=== PATIENT | male | born 1980 | race Caucasian/White ===

== ENCOUNTER 2016-11-11 06:55 | Emergency (ER) | payer OTHER ==
--- NOTE | ~2016-11-11 | CR78 ---
[facility] A Service of [facility] & [facility] RADIOLOGY TEXT RESULTS PATIENT: MAURICIO CHE LOCATION: [facility] : 78 UNIT #: [id number] AGE: [address]: Kellee Palomo SEX: M ORDER DR: [id number] [place] [id number] [facility]. [place], [place] [address] [id number] E MR#: [id number] Acc #: [id number] NAME: MAURICIO CHE : 1980 SEX: M STUDY DATE/TIME: 11/11/2016 7:59 UNIT: [facility] ROOM: STUDY DESCRIPTION: CR Clavicle Comp Rt Attending Physician: Kellee Palomo Pa-C Ordering Physician: Kellee Palomo Pa-C Primary Care Physician: Primary Care Physician No MEDICAL IMAGING REPORT This report is preliminary unless electronic signature is present EXAM Right clavicle HISTORY Pain right-sided clavicle for 6 months. Previous injury 8 years ago. FINDINGS 2 views of the right clavicle demonstrates instrumentation from previous ORIF of a right clavicle fracture with a dorsal plate and screws and a single intramedullary screw not engaging the plate. I suspect this represented an inter-fragmentary screw. The fracture appears well healed. No fracture or loosening instrumentation. The visualized AC joint and soft tissues are unremarkable. IMPRESSION Status post ORIF of an apparent healed right clavicle fracture with intact instrumentation. Dictated by... Lia Rizo M.D. THIS IS AN ELECTRONICALLY VERIFIED REPORT Lia Rizo M.D. at 11/11/2016 5:05 PM GREGORIA/sharonda TD: 11/11/2016 11:46 JOB #: [id number] MEDICAL IMAGING REPORT Page 1 of 1 COPY
--- NOTE | ~2016-11-11 | CR58 ---
[facility] A Service of [facility] & [facility] RADIOLOGY TEXT RESULTS PATIENT: MARUICIO CHE LOCATION: [facility] : 78 UNIT #: [id number] AGE: [address]: Kellee Palomo SEX: M ORDER DR: [id number] [place] [address] [address] [facility]. [place], [place] [address] [id number] E MR#: [id number] Acc #: [id number] NAME: MAURICIO CHE : 1980 SEX: M STUDY DATE/TIME: 11/11/2016 7:59 UNIT: [facility] ROOM: STUDY DESCRIPTION: CR Cervical Spine 2 or 3 Views Attending Physician: Kellee Palomo Pa-C Ordering Physician: Kellee Palomo Pa-C Primary Care Physician: No Primary Care Physician MEDICAL IMAGING REPORT This report is preliminary unless electronic signature is present EXAM C-spine 3 views HISTORY Neck pain left-sided clavicular pain for 6 months. FINDINGS AP, lateral, and open-mouth odontoid views are submitted. Examination demonstrates mild degenerative disc changes C5-6 with disc space narrowing and mild posterior hypertrophic change. Minimal facet sclerosis. No fracture noted. No malalignment. The prevertebral soft tissues appear normal. The odontoid and C1-2 relationship appear normal. Instrumentation is noted in the right clavicle from previous ORIF. The upper thorax appears normal. IMPRESSION Mild C5-6 degenerative disc changes and minimal multilevel facet sclerosis cervical spine. No acute findings. Dictated by... Lia Rizo M.D. THIS IS AN ELECTRONICALLY VERIFIED REPORT Lia Rizo M.D. at 11/11/2016 5:05 PM GREGORIA/ruth ann TD: 11/11/2016 15:35 JOB #: [id number] MEDICAL IMAGING REPORT Page 1 of 1 COPY
[2017-02-27] MEDS ORDERED: TRAZODONE PO (14:37)
[2017-02-27] MEDS ORDERED: LOC PO (14:38)
[2017-02-27] MEDS ORDERED: FLORASTORKIDS250 MG PO (14:39)
[2017-02-27] MEDS ORDERED: CUBICIN IV (14:41)
[2017-02-27] MEDS ORDERED: GUAIFENESIN600 M1 PO (22:56)
== END 2016-11-11 10:49 | disposition home or self-care (01) ==
LOC: CED 06:55
DX: L03.114 Cellulitis of left upper limb (principal); G89.29 Other chronic pain; M54.2 Cervicalgia; M25.511 Pain in right shoulder; B19.20 Unspecified viral hepatitis C without hepatic coma
CPT/HCPCS: 72040; 73000; 96365; 96375; 99284; J1885; J2405

== ENCOUNTER 2017-01-29 13:26 | Emergency (ER) | payer OTHER ==
[~2017-01-29] VITALS: Ht 175.3 cm; Wt 72.6 kg
--- NOTE | ~2017-01-29 | CT71 ---
[facility] A Service of [facility] RADIOLOGY TEXT RESULTS PATIENT: MAURICIO CHE LOCATION: [facility] : 78 UNIT #: [id number] AGE: [address]: Christophe Villalobos MD SEX: M ORDER DR: [id number] [facility] [address] [place], [place] [address] [id number] E MR#: [id number] Acc #: [id number] NAME: MAURICIO CHE : 1980 SEX: M STUDY DATE/TIME: 01/29/2017 15:29 UNIT: [facility] ROOM: STUDY DESCRIPTION: CT Head Wo Contrast Attending Physician: Rustam Villalobos M.D. Ordering Physician: Fredo Sanon M.D. Primary Care Physician: No Primary Care Physician MEDICAL IMAGING REPORT This report is preliminary unless electronic signature is present EXAMINATION Noncontrast CT head. DATE 01/29/2017, at 15:29. HISTORY 36-year-old male with headache and blurred vision for 2 days, worse with movement. Sharp ache on the right side of the head today. COMPARISON None. TECHNIQUE This CT exam was performed with one or more of the following radiation dose reduction techniques: automatic exposure control, adjustment of mA and/or kV according to patient size, and iterative reconstruction. FINDINGS No acute intracranial hemorrhage, mass lesion, mass effect, or midline shift is seen. There is no CT evidence of acute evolving infarct. 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 There is extensive bilateral ethmoid sinus mucosal thickening. Air-fluid levels are seen within the bilateral maxillary sinuses. Mastoid air cells are clear. No acute calvarial abnormality. IMPRESSION 1. No acute intracranial findings. 2. Features of acute sinusitis with air-fluid levels in the bilateral maxillary sinuses and dense bilateral ethmoid sinus opacification. Dictated by... [facility] A Service of [facility] RADIOLOGY TEXT RESULTS PATIENT: MAURICIO CHE LOCATION: [facility] : 78 UNIT #: [id number] AGE: [address]: Christophe Villalobos MD SEX: M ORDER DR: Natalya Dinh M.D. THIS IS AN ELECTRONICALLY VERIFIED REPORT Natalya Dinh M.D. at 01/30/2017 1:54 PM WAYNE/gertrudis TD: 01/29/2017 22:17 JOB #: [id number] MEDICAL IMAGING REPORT Page 1 of 1 COPY
[2017-01-29 15:02] LABS: BASOPHIL% 0.5 % (0-2.5); EOSINOPHIL% 0.3 % (0.0-7.0); HEMATOCRIT 39.2 % (38.0-50.0); HEMOGLOBIN 13.4 gm/dL (13.0-16.0); LYMPHOCYTE# 1.1 X10e3 (1.0-3.5); LYMPHOCYTE% 13.5 % (17.0-45.0); MEAN CELL VOLUME 87.2 FL (83-96); MEAN CORPUSCULAR HEMOGLOBIN 29.9 PG (28-34); MEAN CORPUSCULAR HGB CONC 34.3 g/dL (30-36); MEAN PLATELET VOLUME 7.8 FL (6.5-11.5); MONOCYTE# 0.5 X10e3 (0-1.0); MONOCYTE% 6.8 % (3.0-12.0); NEUTROPHIL# 6.3 X10e3 (1.5-7.1); NEUTROPHIL% 78.9 % (40-75); PLATELET COUNT 178 X10e3 (140-420); RED BLOOD COUNT 4.49 X10e (3.90-5.60); RED CELL DISTRIBUTION WIDTH 13.7 % (11.0-15.5)
[2017-01-29 15:05] LABS: DIFF IND NO
[2017-01-29 15:23] LABS: INFLUENZA A NEG (NEG); INFLUENZA B NEG (NEG)
[2017-01-29 15:30] LABS: BUN/CREATININE RATIO 8.88; CALCIUM SERUM 8.5 mg/dL (8.4-10.2); CREATININE SERUM 0.9 mg/dL (0.6-1.4); POTASSIUM 3.3 mmol/L (3.5-5.1)
[2017-02-27] MEDS ORDERED: TRAZODONE PO (14:37)
[2017-02-27] MEDS ORDERED: LOC PO (14:38)
[2017-02-27] MEDS ORDERED: FLORASTORKIDS250 MG PO (14:39)
[2017-02-27] MEDS ORDERED: CUBICIN IV (14:41)
[2017-02-27] MEDS ORDERED: GUAIFENESIN600 M1 PO (22:56)
== END 2017-01-29 16:48 | disposition home or self-care (01) ==
LOC: CED 13:26
PROVIDERS: Emergency Medicine
DX: J01.00 Acute maxillary sinusitis, unspecified (principal); J01.20 Acute ethmoidal sinusitis, unspecified; B19.20 Unspecified viral hepatitis C without hepatic coma
CPT/HCPCS: 36415; 70450; 80048; 83605; 85025; 86308; 87040; 87077; 87186; 87651; 87804; 96361; 96374; 96375; 99284; J0696; J1885

== ENCOUNTER 2017-02-04 19:53 | Inpatient (IN) | payer OTHER ==
[~2017-02-04] VITALS: Ht 172.7 cm; Wt 72.7 kg
--- NOTE | ~2017-02-04 | A ---
[facility] DATE: 02/16/17 Patient: MAURICIO CHE Physician: ALCIRA Address: [address] [place] [address] Room/Bed: [address] [place] [address], Zip: [place] [address] Admit Date: 02/05/17 Date of : [birth year] Height: 5 8 Weight: 160 72.8 NUTRITIONAL ASSESSMENT: REASON: Seen due to length of stay Admitting dx: 36 y/o male admitted with MRSA bacteremia PMH: IV drug abuse (meth), Hep C, depression Anthropometrics: Ht: 68", admission wt: 166 lbs, curent wt: 160 lbs, BMI: 24 (normal; based on admission wt) Labs: Reviewed; nothing significant Meds: IV Abx, zofran/laxative prn I/O & Bowel function: BM 02/15, WNL Skin Integrity: No issues, no edema Assessment: Chart reviewed, events noted. See admitting dx and PMH as stated above. Patient is on IV Abx due to dx, CXR showed PNA. He has a hx at [facility] and IV drug abuse. Scored 0 points on the malnutrition risk screen. He states his UBW is 170 lbs but this fluctuates due to his depression and drug abuse. States he got down to 155-160 lbs but starting to put on weight. He is on a regular diet and reports good appetite eating ~75% of 3 meals per day. See recs below. Dx: No nutrition diagnosis identified Intervention: None at this time Monitoring, Evaluation and Goals: Maintain weight and PO intake 50-100% of meals Monitor: per protocol, criteria to determine if above goals met Recommendations: Continue regular diet, please consult RD with any further nutritional needs. Not at nutritional risk Respectfully, [facility] DATE: 02/16/17 Patient: MAURICIO CHE Physician: ALCIRA Address: [address] [place] [address] Room/Bed: [address] [place] [address], Zip: [place] [address] Admit Date: 02/05/17 Date of : [birth year] Height: 5 8 Weight: 160 72.8 Magda Early, RALPH, LD [employer] [facility] cc: client file
--- NOTE | ~2017-02-04 | CT96 ---
[facility] A Service of [facility] & [facility] / [facility] RADIOLOGY TEXT RESULTS PATIENT: MAURICIO CHE LOCATION: [facility] 340-01 : 78 UNIT #: [id number] AGE: [address]: Justin Lloyd MD SEX: M ORDER DR: [id number] [facility] [address] [facility]. [place], [place] [address] [id number] I MR#: [id number] Acc #: [id number] NAME: MAURICIO CHE : 1980 SEX: M STUDY DATE/TIME: 02/06/2017 13:42 UNIT: [address] ROOM: [facility] STUDY DESCRIPTION: CT Lumbar Spine W Cont Attending Physician: Errol Pete M.D. Ordering Physician: Errol Pete M.D. Primary Care Physician: Primary Care Physician No MEDICAL IMAGING REPORT This report is preliminary unless electronic signature is present EXAM CT of the lumbar spine with contrast, 02/06/[address] thoracic and cervical spine with contrast, 02/06/2017. There are no older lumbar spine studies available. HISTORY Fever and chills since 01/29/2017. History of MRSA bacteremia diagnosed at that time. The patient started having headache followed by neck and spine pain for the last three days. TECHNIQUE CT of the lumbar spine was obtained without contrast in the axial plane followed by sagittal and coronal reformats. This CT exam was performed with one or more of the following radiation dose reduction techniques: automatic exposure control, adjustment of mA and/or kV according to patient size, and iterative reconstruction. FINDINGS No acute fracture, subluxation or destructive bony lesions are seen. Pedicles, spinous process and transverse process are intact. There is no bony erosion or periosteal thickening. Minimal disc bulge is suspected at L3-4 and L4-5. Mild inferior bilateral neural foraminal encroachment and borderline size canal at L3-4 and L4-5. No significant canal stenosis or nerve impingement in the neural foramina. IMPRESSION No discernible significant abnormality associated with the lumbar spine. Minimal disc bulges are suspected at L3-4 and L4-5 with borderline size canal. Mild associated inferior bilateral neural foraminal encroachment cannot be excluded. [facility] A Service of [facility] & [facility] / [facility] RADIOLOGY TEXT RESULTS PATIENT: MAURICIO CHE LOCATION: [facility] 340-01 : 78 UNIT #: [id number] AGE: [address]: Justin Lloyd MD SEX: M ORDER DR: Dictated by... Terri Saab M.D. THIS IS AN ELECTRONICALLY VERIFIED REPORT Terri Saab M.D. at 02/10/2017 9:27 AM HOANG/kraig TD: 02/07/2017 19:37 JOB #: [id number] MEDICAL IMAGING REPORT Page 1 of 1 COPY
--- NOTE | ~2017-02-04 | CT50 ---
[facility] A Service of [facility] & [facility] RADIOLOGY TEXT RESULTS PATIENT: MAURICIO CHE LOCATION: [facility] 340-01 : 78 UNIT #: [id number] AGE: [address]: ELAINA BRADFORD V SEX: M ORDER DR: [id number] [place] [address] [facility]. [place], [place] [address] [id number] I MR#: [id number] Acc #: [id number] NAME: MAURICIO CHE : 1980 SEX: M STUDY DATE/TIME: 02/06/2017 13:42 UNIT: [address] ROOM: [facility] STUDY DESCRIPTION: CT Cervical Spine W Cont Attending Physician: Elaina Bradford M.D. Ordering Physician: Ras Disla M.D. Primary Care Physician: No Primary Care Physician MEDICAL IMAGING REPORT This report is preliminary unless electronic signature is present EXAM CT of the C-spine without contrast dated 02/06/2017. COMPARISON CT L-spine dated 02/06/2017. HISTORY Chills and fever since 01/29/2017. History of MRSA bacteremia diagnosed on 01/29/2017. Patient started having headache and then neck and spine pain for the last [address] of the C-spine was obtained without contrast in the axial plane followed by sagittal and coronal reformats. IV contrast was administered for image acquisition. This CT exam was performed with one or more of the following radiation dose reduction techniques: automatic exposure control, adjustment of mA and/or kV according to patient size, and iterative reconstruction. FINDINGS Bones are within normal limits. No acute fracture, bony erosions, periosteal thickening, or subluxation is seen. There are degenerative changes at multiple levels of the cervical spine. There is a infiltrate in the right upper lobe. High-riding right jugular bulb is suspected in the skull base. C5-6: Disc osteophyte complex with mild bilateral facet changes and inferior left C5-6 neural foraminal narrowing. Bilateral uncinate spurs are noted with mild bilateral facet changes. No canal stenosis. The other levels do not demonstrate any significant abnormality. IMPRESSION [facility] A Service of [facility] & [facility] RADIOLOGY TEXT RESULTS PATIENT: MAURICIO CHE LOCATION: [facility] 340-01 : 78 UNIT #: [id number] AGE: [address]: ELAINA BRADFORD V SEX: M ORDER DR: 1. No acute fracture or subluxation. 2. Mild degenerative changes are noted in the cervical spine, particularly at C5-6 with mild inferior left neural foraminal narrowing. 3. No evidence of bony erosions, periosteal thickening, destructive bony mass, or drainable abscess collection in association with the cervical spine based on the current study. MRI with contrast is more sensitive and specific in evaluation of early subtle diskitis and osteomyelitis. 4. Evaluation of cord signal is possible with MR. Based on the current study, cord caliber and course are relatively unremarkable. Dictated by... Terri Saab M.D. THIS IS AN ELECTRONICALLY VERIFIED REPORT Terri Saab M.D. at 02/07/2017 9:16 PM CPR/tmw TD: 02/07/2017 19:42 JOB #: [id number] MEDICAL IMAGING REPORT Page 1 of 1 COPY
--- NOTE | ~2017-02-04 | CO ---
Unit #: [id number] #: [id number] Patient: MAURICOI CHE [id number] [address] [address] [id number] I MR#: [id number] NAME: MAURICIO CHE ROOM: 340 Age: 36 Sex: M Admission Date: 02/05/2017 : 1980 Attending Physician: Errol Pete M.D. Primary Care Physician: Jocelyne Primary Care Physician Requesting Physician: Anayeli Toney M.D. Consultation Date: 02/05/2017 CONSULTATION REPORT REASON FOR CONSULTATION MRSA bacteremia. HISTORY OF PRESENT ILLNESS This is a 36-year-old white male with a history of depression, hyperactive disease and IV drug use with ICE and methamphetamine, who was admitted with fever and chills and generalized weakness. Apparently he was in the hospital on the for what appeared to be acute febrile illness. He was diagnosed with sinusitis and was sent home on some oral antibiotics. He subsequently returned with a fever and was found to have MRSA bacteremia from the , for which he was started on daptomycin and Zyvox. Infectious disease was consulted for further evaluation. The patient is clinically stable at this time. He is somewhat confused, but awake. He does not appear to be in any distress. He denies any headaches or abdominal pain. He does complain of some chest pain, however, and has a pleuritic type character. He has no leg swelling or any obvious skin abscesses. PAST MEDICAL HISTORY 1. Hepatitis C. 2. Intravenous drug abuse. 3. Right clavicular surgery. 4. Diabetes none. SOCIAL HISTORY IV drug user. Denies any alcohol. FAMILY HISTORY Negative. CURRENT MEDICATIONS As mentioned, in the hospital he was on Cubicin, Zyvox, Florastor, enoxaparin, acetaminophen and laxatives. REVIEW OF SYSTEMS Weakness, fever, cough, chest pain, chills. No headache or abdominal pain, nausea, vomiting or diarrhea, dysuria, frequency, urgency, hematuria, etc. PHYSICAL EXAMINATION GENERAL: Young white male who looks older than his stated age. He looks chronically ill. He is awake, but somewhat slow to respond. VITALS: Current temperature 98.5, t-max 101.4, heart rate 112, respiratory rate 22, blood pressure 100/63, lowest blood pressure 93/67. Unit #: [id number] #: [id number] Patient: MAURICIO CHE HEENT: Edentulous. NECK: Supple. No jugular venous distension. SKIN: Multiple tattoos, but no obvious needle track bill were identified. No cutaneous abscesses. LUNGS: Scattered crackles at the bases. HEART: Heart sounds are muffled. There is a very faint ejection systolic murmur. ABDOMEN: Somewhat tense, but nontender. There is no rebound or guarding. Bowel sounds normal. NEUROLOGIC: He is awake. No signs of meningeal agitation. Able to move all four extremities. No obvious spinal tenderness or inflammatory arthropathy was noted. DIAGNOSTIC STUDIES IMAGING: Chest series show multiple pulmonary nodules, suspicious for septic pulmonary emboli. Head CT done on the shows no acute intracranial findings. Features of acute sinusitis with air fluid levels were noted in the bilateral maxillary sinuses. LABORATORY: Blood cultures two of two sets obtained on the were positive for MRSA. Blood cultures from last night are still pending. Lactic acid is 1.5. Sodium is 130, potassium 2.9, chloride 95, CO2 25, BUN 12, creatinine 1.2. AST 54, ALT 60, alkaline phosphatase 56. Bilirubin 0.6. White count 20.8, hemoglobin 11.8, hematocrit 28.9, platelets 331, neutrophils 89.2%. ASSESSMENT Main issue is MRSA bacteremia, most likely related to IV drug use with possible right-sided endocarditis, septic pulmonary embolus. PLAN Will change daptomycin and Zyvox to vancomycin monotherapy. Repeat blood cultures and order a two-dimensional echo. The patient may need a TERRIE two-dimensional echo is nonconclusive. Will also check him for HIV status. Further recommendations will follow. Thank you, Dr. Toney, with asking me to see this patient. Will follow along with you. Dictated by... Henry Fleming TD: 02/05/2017 08:37 JOB #: [id number] Unit #: [id number] #: [id number] Patient: MAURICIO CHE CONSULTATION REPORT Page 1 of 1 X Ras Disla MD CONSULTATION REPORT
--- NOTE | ~2017-02-04 | TOC ---
Unit #: [id number] #: [id number] Patient: MAURICIO CHE [id number] [address] [address] [id number] I MR#: [id number] NAME: MAURICIO CHE ROOM: [facility] Age: 36 Sex: M Admission Date: 02/05/2017 : 1980 Attending Physician: Justin Lloyd M.D. TRANSFER OF CARE SUMMARY DISCHARGE DIAGNOSES 1. MRSA bacteremia. 2. Methamphetamine abuse. 3. Hepatitis C. 4. Hypokalemia. HOSPITAL COURSE The patient is a 36-year-old male admitted to [facility] for MRSA bacteremia. Apparently, he had begun to feel ill approximately 10 days prior to admission. He came to the emergency department on January 29 and was thought to have sinusitis and started on antibiotics. Blood cultures were performed at the time of the original presentation and ultimately grew MRSA. As a result, he was admitted for treatment. The patient was started on vancomycin and blood cultures drawn February 08 remain negative today. The patient did have three positive sets prior. The source of infection was unable to be found. The patient underwent TERRIE which failed to show a vegetation. Patient underwent CT of his C, T, and L spines without any nidus of infection noted. As a result, the patient was sent for gallium scan which is now complete. Results are pending at this time however. Depending on the results of the gallium scan, the rest of the clinical course and duration of vancomycin can be determined. Dictated by... Henry Menjivar/dariel TD: 02/15/2017 15:39 JOB #: [id number] Unit #: [id number] #: [id number] Patient: MAURICIO CHE TRANSFER OF CARE SUMMARY Page 1 of 1 X Justin Lloyd MD X TRANSFER OF CARE SUMMARY
--- NOTE | ~2017-02-04 | DS ---
Unit #: [id number] #: [id number] Patient: MAURICIO CHE [id number] [address] [place], [place] [address] [id number] I MR#: [id number] NAME: MAURICIO CHE ROOM: 340 Age: 36 Sex: M Admission Date: 02/05/2017 : 1980 Discharge Date: 02/16/2017 Attending Physician: Justin Lloyd M.D. Primary Care Physician: No Primary Care Physician DISCHARGE SUMMARY FINAL DIAGNOSES 1. Persistent methicillin-resistant Staphylococcus aureus bacteremia (1) . 2. Intravenous drug use. CONSULTS Infectious Disease, Dr. Manuel. PROCEDURES He had a TERRIE which was negative for endocarditis. HOSPITAL COURSE The patient is a pleasant, 36-year-old male, history of IV drug use, MRSA bacteremia, who came back positive on his blood cultures. He has been treated with IV vancomycin and, at this time, the plan is to discharge him home with IV daptomycin 6 mg/kg IV q.24 for the next four weeks. He is to get a CBC, BMP, CPK every Wednesday and the results to be sent to Dr. Manuel's office. Dr. Manuel's impression was this was likely endocarditis source of bacteremia. He is to continue with four more weeks of IV antibiotics. MEDICATIONS ON DISCHARGE 1. Laxative of choice over the counter. 2. Trazodone 25 mg at bedtime p.r.n. 3. Florastor 250 mg p.o. twice daily. 4. IV Daptomycin 6 mg/kg q.24 for four weeks every Wednesday. This will be set up prior to him being discharged. Patient discussed with Dr. Manuel in detail. Time spent coordinating discharge is about 36 minutes. Dictated by... Henry Miguel TD: 02/16/2017 13:27 JOB #: [id number] Unit #: [id number] #: [id number] Patient: MAURICIO CHE DISCHARGE SUMMARY Page 1 of 1 X Rosa Blum MD SUMMARY
--- NOTE | ~2017-02-04 | CT120 ---
[facility] A Service of [facility] & [facility] RADIOLOGY TEXT RESULTS PATIENT: MAURICIO CHE LOCATION: [facility] 340- : [birth year] UNIT #: [id number] AGE: [address]: ELAINA PETE V SEX: M ORDER DR: [id number] [place] [id number] [facility]. [place], [place] [address] [id number] I MR#: [id number] Acc #: [id number] NAME: MAURICIO CHE : 1980 SEX: M STUDY DATE/TIME: 02/06/2017 13:42 UNIT: [address] ROOM: [facility] STUDY DESCRIPTION: CT Thoracic Spine W Cont Attending Physician: Elaina Pete M.D. Ordering Physician: Elaina Pete M.D. Primary Care Physician: Primary Care Physician No MEDICAL IMAGING REPORT This report is preliminary unless electronic signature is present EXAM CT of the thoracic spine with contrast, 02/06/[address] cervical and lumbar spine with contrast, 02/06/2017 HISTORY Fever, chills since 01/29/2017. Diagnosed with MRSA bacteremia on 01/29/2017. Patient started having headache and then neck and spine pain for the last [address] of the thoracic spine was obtained without contrast in the axial plane followed by sagittal and coronal reformats. This CT exam was performed with one or more of the following radiation dose reduction techniques: automatic exposure control, adjustment of mA and/or kV according to patient size, and iterative reconstruction. FINDINGS Vertebral body heights and alignment are preserved. Small Schmorl's nodes are at multiple levels. No obvious bony erosions, fracture or subluxation is seen. No focal disc herniation, canal stenosis or neural foraminal narrowing. Bilateral moderate pleural effusions with associated atelectatic changes of the nearby lungs are present. IMPRESSION 1. No discernible significant abnormality is noted in the thoracic spine in this modality. MRI with and without contrast is more sensitive and specific in evaluation of early discitis and infectious changes in the entire spine. 2. Moderate bilateral pleural effusion with associated atelectatic lung [facility] A Service of [facility] RADIOLOGY TEXT RESULTS PATIENT: MAURICIO CHE LOCATION: [facility] 340-01 : [birth year] UNIT #: [id number] AGE: [address]: ELAINA PETE V SEX: M ORDER DR: tyshawn. Dictated by... Terri Saab M.D. THIS IS AN ELECTRONICALLY VERIFIED REPORT Terri Saab M.D. at 02/07/2017 9:16 PM CPR/jw TD: 02/07/2017 20:11 JOB #: [id number] MEDICAL IMAGING REPORT Page 1 of 1 COPY
--- NOTE | ~2017-02-04 | NM73 ---
[facility] A Service of [facility] RADIOLOGY TEXT RESULTS PATIENT: MAURICIO CHE LOCATION: [facility] 340-01 : [birth year] UNIT #: [id number] AGE: [address]: Justin Lloyd MD SEX: M ORDER DR: [id number] [place] [address] [id number] [facility]. [place], [place] [address] [id number] I MR#: [id number] Acc #: [id number] NAME: MAURICIO CHE : 1980 SEX: M STUDY DATE/TIME: 02/11/2017 11:59 UNIT: C3A [facility] ROOM: [facility] STUDY DESCRIPTION: NH Radiopharm Loc Inflam Whole Attending Physician: Jutsin Lloyd M.D. Ordering Physician: Ras Disla M.D. MEDICAL IMAGING REPORT This report is preliminary unless electronic signature is present EXAMINATION Nuclear medicine Gallium scan. DATE 02/11/2017 HISTORY Persistent MRSA bacteremia and septic pulmonary infarcts. Fever and chills since 01/29/2017. Diagnosed with MRSA bacteremia on 01/29/2017. Headache, neck and spine pain. COMPARISON CT of the cervical, thoracic and lumbar spine with IV contrast 02/06/2017. CT chest 02/05/2017. FINDINGS Following the injection of 7.2 mCi Gallium 67 citrate, anterior and posterior planar images were obtained at 24, 48 and 72 hours. Of note, the patient did not follow the bowel preparation for the 48-hour images, and enema was the only towel prep performed for the 72 hour image. Normal radiopharmaceutical uptake is demonstrated within the liver, spleen, bowel, and marrow on the examination. Persistent regional uptake within the left lower quadrant, presumably the descending sigmoid colon, on 24, 48 and 72-hour phases, may indicate underlying bowel inflammatory change. Again, the degree of marrow uptake appears physiologic, no focal intense region of abnormal radiotracer is seen within the spine to suggest diskitis-osteomyelitis. IMPRESSION Persistent regional uptake within the left lower quadrant bowel presumably [facility] A Service of [facility] RADIOLOGY TEXT RESULTS PATIENT: MAURICIO CHE LOCATION: [facility] 340-01 : [birth year] UNIT #: [id number] AGE: [address]: Justin Lloyd MD SEX: M ORDER DR: representing the distal descending colon, sigmoid colon which persists through the 72-hour phases of imaging. Correlate for enteritis/colitis symptoms. Otherwise, the remainder of the Gallium scan is within normal limits. Dictated by... Natalya Dinh M.D. THIS IS AN ELECTRONICALLY VERIFIED REPORT Natalya Dinh M.D. at 02/18/2017 8:37 AM AWYNE/gertrudis TD: 02/12/2017 23:48 JOB #: [id number] MEDICAL IMAGING REPORT Page 1 of 1 COPY
--- NOTE | ~2017-02-04 | EKG ---
PATIENT: MAURICIO CHE UNIT #: [id number] Ventricular Rate: 100 BPM Atrial Rate: 100 BPM P-R Interval: 120 ms QRS Duration: 86 ms Q-T Interval: 334 ms QTC Calculation(Bezet): 430 ms P Thornton: 55 degrees Calculated R Thornton: 72 degrees Calculated T Thornton: 69 degrees Diagnosis Line: Normal sinus rhythm Diagnosis Line: Normal ECG Diagnosis Line: No previous ECGs available Diagnosis Line: Confirmed by SAMANTHA LOPES MD ([id number]) on 02/05/2017 Diagnosis Line: 5:18:33 PM INTERPRETING MD: MARIANNE ESQUEDA
--- NOTE | ~2017-02-04 | CT55 ---
[facility] A Service of [facility] RADIOLOGY TEXT RESULTS PATIENT: MAURICIO CHE LOCATION: [facility] 340 : 78 UNIT #: [id number] AGE: [address]: Justin Lloyd MD SEX: M ORDER DR: [id number] [place] [id number] [facility]. [place], [place] [address] [id number] I MR#: [id number] Acc #: [id number] NAME: MAURICIO CHE : 1980 SEX: M STUDY DATE/TIME: 02/05/2017 3:12 UNIT: [address] ROOM: 340 STUDY DESCRIPTION: CT Chest W Con Attending Physician: Anayeli Toney M.D. Ordering Physician: Cody Moreno M.D. Primary Care Physician: No Primary Care Physician MEDICAL IMAGING REPORT This report is preliminary unless electronic signature is present EXAM CT chest with contrast, 02/05/2017 HISTORY A 36-year-old male in the ED complaining of 2-day - 3-day history of fever and productive cough. Bacteremia is noted. History of IV drug use and hepatitis C. Pulmonary nodularity on chest x-ray. TECHNIQUE CT examination of the chest was performed with IV contrast. CTA protocol was not ordered. This CT exam was performed with one or more of the following radiation dose reduction techniques: automatic exposure control, adjustment of mA and/or kV according to patient size, and iterative reconstruction. FINDINGS Multiple ill-defined pulmonary nodules are scattered randomly throughout both lungs. Although none of these yet shows central cavitation, the appearance, distribution and clinical history are highly suggestive of septic emboli. Consolidation and atelectasis is present in the dependent lung bases, and there are tiny bilateral pleural effusions. Heart size is normal, there is no pericardial effusion. Smooth thickening of interstitial markings throughout both lungs, greatest at the lung bases, suggesting probable mild interstitial pulmonary edema. Limited upper abdominal images show hepatosplenomegaly. IMPRESSION: [facility] A Service of [facility] RADIOLOGY TEXT RESULTS PATIENT: MAURICIO CHE LOCATION: [facility] 340 : 78 UNIT #: [id number] AGE: [address]: Justin Lloyd MD SEX: M ORDER DR: 1. Multiple small, ill-defined pulmonary nodules of varying size scattered randomly throughout both lungs. None of these are yet cavitary, but the appearance and distribution along with the clinical history is highly suggestive of septic pulmonary emboli. 2. Consolidation and atelectasis in the dependent posterior lung bases along with tiny bilateral pleural effusions. 3. Probable mild interstitial pulmonary edema. Heart size normal. No pericardial effusion. 4. Hepatosplenomegaly. STAT * RESULT Dictated by... Hermes Arevalo M.D. THIS IS AN ELECTRONICALLY VERIFIED REPORT Hermes Arevalo M.D. at 02/08/2017 11:06 PM ROGER/bhargav TD: 02/05/2017 04:31 JOB #: [id number] MEDICAL IMAGING REPORT Page 1 of 1 COPY
--- NOTE | ~2017-02-04 | CR72 ---
[facility] A Service of [facility] RADIOLOGY TEXT RESULTS PATIENT: MAURICIO CHE LOCATION: [facility] 340- : 78 UNIT #: [id number] AGE: [address]: ELAINA BRADFORD V SEX: M ORDER DR: [id number] [facility] [address] [facility]. [place], [place] [address] [id number] I MR#: [id number] Acc #: [id number] NAME: MAURICIO CHE : 1980 SEX: M STUDY DATE/TIME: 02/04/2017 21:22 UNIT: [address] ROOM: [facility] STUDY DESCRIPTION: CR Chest Single View Portable Attending Physician: Elaina Bradford M.D. Ordering Physician: Cody Moreno M.D. Primary Care Physician: Primary Care Physician No MEDICAL IMAGING REPORT This report is preliminary unless electronic signature is present EXAM Portable chest radiograph INDICATION Fever, productive cough and body aches for 2-3 days. FINDINGS Heart size is within normal limits. Patient does appear to have some patchy infiltrates some of which have a more nodular configuration. These are present in both lungs and would be better characterized with dedicated CT of the chest. No pneumothorax is identified. Trace bilateral pleural effusions are seen. There are postsurgical changes involving the right clavicle. Dictated by... Letty Méndez M.D. THIS IS AN ELECTRONICALLY VERIFIED REPORT Letty Méndez M.D. at 02/05/2017 5:48 PM AFF/mjoscar TD: 02/05/2017 12:36 JOB #: [id number] MEDICAL IMAGING REPORT Page 1 of 1 COPY
--- NOTE | ~2017-02-04 | HP ---
Unit #: [id number] #: [id number] Patient: MAURICIO CHE [id number] [address] [address] [id number] I MR#: [id number] NAME: MAURICIO CHE ROOM: 340 Age: 36 Sex: M Admission Date: 02/05/2017 : 1980 Attending Physician: Anayeli Toney M.D. Primary Care Physician: No Primary Care Physician HISTORY AND PHYSICAL CHIEF COMPLAINT MRSA bacteremia with LOREN of 2, productive cough with abnormal chest x-ray. HISTORY This pleasant, 36-year-old male with depression, hepatitis C, history of methamphetamine IV drug abuse, is admitted for MRSA bacteremia. Patient states that he was well until 1 1/2 weeks prior to admission when he began to experience fevers, sweats, chills with a cough productive of brownish sputum. He was seen in this emergency department 01/29/2017 and was diagnosed with sinusitis and was placed on Augmentin and Humibid. At that time, he had a headache. CT scan showed sinusitis. However, blood cultures were performed and these came back positive for MRSA with LOREN of 2. Patient presented to this emergency department last evening where he was bolused with 2 liters of saline, given Tylenol for a temperature of 101.4. He was also given Toradol and IV vancomycin. Chest x-ray is abnormal showing nodular infiltrates bilaterally. CT scan is recommended. PAST MEDICAL HISTORY 1. Hepatitis C. 2. Depression. 3. History of IV methamphetamine abuse. 4. Right clavicle surgery. ALLERGIES None. HOME MEDICATIONS Augmentin. FAMILY HISTORY Negative for CAD. SOCIAL HISTORY The patient lives with his mother, stepfather, and grandmother. He is a lifelong nonsmoker and does not drink alcohol. He was injecting methamphetamines until two weeks ago. He stopped two weeks ago, states that he did not use clean needles. REVIEW OF SYSTEMS Notable for weakness, productive cough, fevers, sweats, chills, hepatitis C, right shoulder surgery, drug abuse. All other systems were reviewed and otherwise negative. Unit #: [id number] #: [id number] Patient: MAURICIO CHE PHYSICAL EXAMINATION GENERAL APPEARANCE: Mildly ill appearing, 36-year-old male currently in no acute distress. He is diaphoretic. VITAL SIGNS: Temperature 101.4, pulse 112, respirations 18, blood pressure 103/60, O2 saturation of 94% on room air. HEENT: Eyes: PERRLA. Extraocular muscles are intact. Pharynx is benign with poor dentition. NECK: Supple without adenopathy or thyromegaly. CHEST: Reveals rhonchi bilaterally. CARDIAC: Normal S1 and S2 without definite murmur. ABDOMEN: Bowels sounds are present. No hepatosplenomegaly, tenderness, or masses. EXTREMITIES: Without C, C, or E. Pedal pulses are present. No splinter hemorrhages noted over the nailbeds. No rashes that I can see. (1) . NEUROLOGIC: Patient is awake, alert, and oriented. Cranial nerves are intact. Equal strength throughout. DIAGNOSTIC STUDIES ADMISSION LABS: Hematocrit is 34.9, white blood count is 21 with 3 bands. Essentially normal coags. SMA-12: Glucose 112, sodium 130, potassium 2.9, chloride is 95, calcium is 7.8, albumin is 3, AST 54, ALT 60, lactic acid is normal, of uncertain significance. Influenza swabs recently were negative. HIV last year was negative. IMAGING: Chest x-ray abnormal with nodular infiltrates. ASSESSMENT 1. Methicillin resistant Staphylococcus aureus bacteremia with LOREN of 2. 2. Abnormal chest x-ray, rule out pneumonia versus septic pulmonary emboli. 3. Methamphetamine intravenous drug abuse, but none for the past two weeks; patient was not using clean needles. 4. Hepatitis C. 5. Hypokalemia. PLANS 1. Cubicin start stat IV. However, given pulmonary infiltrates and cough, will also give Zyvox for now until CT scan of the chest return. If CT scan of the chest is negative, will discontinue Cubicin. 2. CT scan of the chest. 3. Obtain echo, EKG, may need TERRIE. 4. DVT prophylaxis. 5. IV fluids and supportive treatment. 6. Infectious disease consultation. 7. Replace potassium and check magnesium. Dictated by Henry Morfin/yamilet TD: 02/05/2017 05:32 JOB #: [id number] Unit #: [id number] #: [id number] Patient: MAURICIO CHE HISTORY AND PHYSICAL Page 1 of 1 X Anayeli Toney MD HISTORY AND PHYSICAL
--- NOTE | ~2017-02-04 | HP ---
Unit #: [id number] #: [id number] Patient: MAURICIO CHE [id number] [address] [address] [id number] I MR#: [id number] NAME: MAURICIO CHE ROOM: [facility] Age: 36 Sex: M Admission Date: 02/05/2017 : 1980 Attending Physician: Anayeli Toney M.D. Primary Care Physician: No Primary Care Physician HISTORY AND PHYSICAL ADDENDUM PLANS If CT scan of the chest is negative would discontinue Zyvox. Obviously with the patient's MRSA with high LOREN 2 vancomycin, patient will need Cubicin. Dictated by Anayeli Toney M.D. AML/ts TD: 02/05/2017 07:31 JOB #: [id number] HISTORY AND PHYSICAL Page 1 of 1 X Anayeli Toney MD X HISTORY AND PHYSICAL
[2017-02-04 22:06] LABS: POC - CKMB <1.0 ng/mL (0.0-7.9); POC - TROPONIN <0.05 ng/mL (<=0.05)
[2017-02-04 22:06] LABS: BASOPHIL% 0.2 % (0-2.5); HEMATOCRIT 34.9 % (38.0-50.0); HEMOGLOBIN 11.7 gm/dL (13.0-16.0); LYMPHOCYTE# 1.4 X10e3 (1.0-3.5); LYMPHOCYTE% 6.7 % (17.0-45.0); MEAN CORPUSCULAR HEMOGLOBIN 28.7 PG (28-34); MEAN CORPUSCULAR HGB CONC 33.4 g/dL (30-36); MEAN PLATELET VOLUME 7.5 FL (6.5-11.5); MONOCYTE# 0.8 X10e3 (0-1.0); MONOCYTE% 3.9 % (3.0-12.0); NEUTROPHIL# 18.5 X10e3 (1.5-7.1); NEUTROPHIL% 89.2 % (40-75); PLATELET COUNT 331 X10e3 (140-420); RED BLOOD COUNT 4.06 X10e (3.90-5.60); RED CELL DISTRIBUTION WIDTH 13.5 % (11.0-15.5); WHITE BLOOD COUNT 20.8 X10e3 (4.0-10.5)
[2017-02-04 22:09] LABS: DIFF IND YES
[2017-02-04 22:15] LABS: INR 1.2; PARTIAL THROMBOPLASTIN TIME 32.9 SECONDS (23.5-31.3)
[2017-02-04 22:24] LABS: ANISOCYTOSIS SL; BILIRUBIN, DIRECT 0.2 mg/dL (0.0-0.2); BILIRUBIN,INDIRECT 0.4 mg/dL (0.0-0.9); BILIRUBIN,TOTAL 0.6 mg/dL (0.2-2.0); CALCIUM SERUM 7.8 mg/dL (8.4-10.2); CREATININE SERUM 1.2 mg/dL (0.6-1.4); GLOM FILT RATE Estimated 76.3 mL/min (>60); PLATELET ESTIMATE NORMAL (NORMAL); PROTEIN TOTAL SERUM 6.9 g/dL (6.0-8.3)
[2017-02-04 22:28] LABS: POTASSIUM 2.9 mmol/L (3.5-5.1)
[2017-02-04] MEDS ORDERED: AUGMENTIN PO (22:52)
[2017-02-05 10:36] LABS: BASOPHIL# 0.1 X10e3 (0-0.3); BASOPHIL% 0.3 % (0-2.5); EOSINOPHIL% 0.1 % (0.0-7.0); HEMATOCRIT 32.3 % (38.0-50.0); HEMOGLOBIN 10.9 gm/dL (13.0-16.0); LYMPHOCYTE# 1.3 X10e3 (1.0-3.5); LYMPHOCYTE% 6.2 % (17.0-45.0); MEAN CELL VOLUME 86.2 FL (83-96); MEAN CORPUSCULAR HEMOGLOBIN 29.1 PG (28-34); MEAN CORPUSCULAR HGB CONC 33.8 g/dL (30-36); MEAN PLATELET VOLUME 7.3 FL (6.5-11.5); MONOCYTE# 0.5 X10e3 (0-1.0); MONOCYTE% 2.7 % (3.0-12.0); NEUTROPHIL# 18.2 X10e3 (1.5-7.1); NEUTROPHIL% 90.7 % (40-75); PLATELET COUNT 293 X10e3 (140-420); RED BLOOD COUNT 3.74 X10e (3.90-5.60)
[2017-02-05 10:38] LABS: DIFF IND NO
[2017-02-05 11:06] LABS: BUN/CREATININE RATIO 11.11; CALCIUM SERUM 8.1 mg/dL (8.4-10.2); CREATININE SERUM 0.9 mg/dL (0.6-1.4); MAGNESIUM 1.4 mg/dL (1.6-3.0); POTASSIUM 3.7 mmol/L (3.5-5.1)
[2017-02-06 06:17] LABS: HEMATOCRIT 32.6 % (38.0-50.0); HEMOGLOBIN 10.9 gm/dL (13.0-16.0); MEAN CELL VOLUME 86.7 FL (83-96); MEAN CORPUSCULAR HGB CONC 33.5 g/dL (30-36); MEAN PLATELET VOLUME 7.5 FL (6.5-11.5); RED BLOOD COUNT 3.75 X10e (3.90-5.60); WHITE BLOOD COUNT 13.9 X10e3 (4.0-10.5)
[2017-02-06 07:01] LABS: INR 1.1; PROTHROMBIN TIME (PATIENT) 11.4 SECONDS (10.0-11.7)
[2017-02-06 07:06] LABS: ALBUMIN SERUM 2.3 g/dL (3.5-5.0); BILIRUBIN,TOTAL 0.5 mg/dL (0.2-2.0); BUN/CREATININE RATIO 11.25; CALCIUM SERUM 7.7 mg/dL (8.4-10.2); CREATININE SERUM 0.8 mg/dL (0.6-1.4); GLOM FILT RATE Estimated 113.4 mL/min (>60); MAGNESIUM 1.8 mg/dL (1.6-3.0); POTASSIUM 3.1 mmol/L (3.5-5.1)
[2017-02-07 05:53] LABS: HEMATOCRIT 31.2 % (38.0-50.0); HEMOGLOBIN 10.7 gm/dL (13.0-16.0); MEAN CELL VOLUME 86.1 FL (83-96); MEAN CORPUSCULAR HEMOGLOBIN 29.4 PG (28-34); MEAN CORPUSCULAR HGB CONC 34.1 g/dL (30-36); MEAN PLATELET VOLUME 7.6 FL (6.5-11.5); RED BLOOD COUNT 3.62 X10e (3.90-5.60); RED CELL DISTRIBUTION WIDTH 13.8 % (11.0-15.5); WHITE BLOOD COUNT 10.1 X10e3 (4.0-10.5)
[2017-02-07 06:52] LABS: BUN/CREATININE RATIO 12.85; CALCIUM SERUM 7.8 mg/dL (8.4-10.2); CREATININE SERUM 0.7 mg/dL (0.6-1.4); GLOM FILT RATE Estimated 119.8 mL/min (>60); POTASSIUM 3.4 mmol/L (3.5-5.1)
[2017-02-08 14:18] LABS: BUN/CREATININE RATIO 7.5; CALCIUM SERUM 8.2 mg/dL (8.4-10.2); CREATININE SERUM 0.8 mg/dL (0.6-1.4); GLOM FILT RATE Estimated 113.4 mL/min (>60); POTASSIUM 3.5 mmol/L (3.5-5.1)
[2017-02-09 06:05] LABS: HEMATOCRIT 33.7 % (38.0-50.0); MEAN CELL VOLUME 87.2 FL (83-96); MEAN CORPUSCULAR HEMOGLOBIN 28.5 PG (28-34); MEAN CORPUSCULAR HGB CONC 32.7 g/dL (30-36); MEAN PLATELET VOLUME 7.5 FL (6.5-11.5); RED BLOOD COUNT 3.86 X10e (3.90-5.60); RED CELL DISTRIBUTION WIDTH 13.9 % (11.0-15.5); WHITE BLOOD COUNT 12.2 X10e3 (4.0-10.5)
[2017-02-09 06:39] LABS: ALBUMIN SERUM 2.4 g/dL (3.5-5.0); BILIRUBIN,TOTAL 0.4 mg/dL (0.2-2.0); BUN/CREATININE RATIO 7.5; CALCIUM SERUM 8.4 mg/dL (8.4-10.2); CREATININE SERUM 0.8 mg/dL (0.6-1.4); GLOM FILT RATE Estimated 113.4 mL/min (>60); POTASSIUM 4.4 mmol/L (3.5-5.1); PROTEIN TOTAL SERUM 6.1 g/dL (6.0-8.3)
[2017-02-10 06:36] LABS: POTASSIUM 4.1 mmol/L (3.5-5.1)
[2017-02-11 05:50] LABS: BUN/CREATININE RATIO 8.75; CALCIUM SERUM 9.1 mg/dL (8.4-10.2); CREATININE SERUM 0.8 mg/dL (0.6-1.4); GLOM FILT RATE Estimated 113.4 mL/min (>60); POTASSIUM 4.7 mmol/L (3.5-5.1)
[2017-02-12 06:21] LABS: POTASSIUM 4.5 mmol/L (3.5-5.1)
[2017-02-13 06:10] LABS: BUN/CREATININE RATIO 14.44; CREATININE SERUM 0.9 mg/dL (0.6-1.4); POTASSIUM 4.1 mmol/L (3.5-5.1)
[2017-02-14 06:09] LABS: HEMATOCRIT 34.3 % (38.0-50.0); HEMOGLOBIN 11.6 gm/dL (13.0-16.0); MEAN CELL VOLUME 87.7 FL (83-96); MEAN CORPUSCULAR HEMOGLOBIN 29.7 PG (28-34); MEAN CORPUSCULAR HGB CONC 33.8 g/dL (30-36); MEAN PLATELET VOLUME 6.5 FL (6.5-11.5); RED BLOOD COUNT 3.91 X10e (3.90-5.60); RED CELL DISTRIBUTION WIDTH 14.9 % (11.0-15.5); WHITE BLOOD COUNT 9.1 X10e3 (4.0-10.5)
[2017-02-16 06:39] LABS: CALCIUM SERUM 9.5 mg/dL (8.4-10.2); GLOM FILT RATE Estimated 95.1 mL/min (>60); POTASSIUM 4.5 mmol/L (3.5-5.1)
[2017-02-18 06:39] LABS: MAGNESIUM 1.9 mg/dL (1.6-3.0); POTASSIUM 3.9 mmol/L (3.5-5.1)
[2017-02-27] MEDS ORDERED: TRAZODONE PO (14:37)
[2017-02-27] MEDS ORDERED: LOC PO (14:38)
[2017-02-27] MEDS ORDERED: FLORASTORKIDS250 MG PO (14:39)
[2017-02-27] MEDS ORDERED: CUBICIN IV (14:41)
[2017-02-27] MEDS ORDERED: GUAIFENESIN600 M1 PO (22:56)
== END 2017-02-18 15:35 | disposition home or self-care (01) | DRG 871 ==
LOC: CED 19:53 → C3A PCU 02-05 00:15 → CEDOF 02-05 00:15 → CED 02-05 00:47 → C3A PCU 02-05 03:19 → CEDOF 02-05 03:19 → C3A PCU 02-05 08:02
PROVIDERS: Emergency Medicine; Family Medicine; Internal Medicine; Nurse Practitioner
PROC: B24BZZZ Ultrasonography of Heart with Aorta (ICD-10-PCS; principal; 2017-02-05)
PROC: B24BZZ4 Ultrasonography of Heart with Aorta, Transesophageal (ICD-10-PCS; 2017-02-08)
DX: A41.02 Sepsis due to Methicillin resistant Staphylococcus aureus (principal); I26.90 Septic pulmonary embolism without acute cor pulmonale; I33.0 Acute and subacute infective endocarditis; I76 Septic arterial embolism; E83.42 Hypomagnesemia; F32.9 Major depressive disorder, single episode, unspecified; F15.10 Other stimulant abuse, uncomplicated; B19.20 Unspecified viral hepatitis C without hepatic coma; R93.8 Abnormal findings on diagnostic imaging of other specified body structures; E87.6 Hypokalemia; D64.9 Anemia, unspecified
CPT/HCPCS: 36415; 71010; 71260; 72126; 72129; 72132; 78806; 80048; 80053; 80076; 80202; 82553; 83605; 83735; 84132; 84484; 85025; 85027; 85610; 85730; 87040; 87077; 87186; 87806; 93005; 93306; 93312; 94760; 96361; 96365; 96366; 96375; 99285; A9556; J0878; J1650; J1885; J2020; J2250; J3010; J3370; J3475; Q9967

== ENCOUNTER → 2017-02-19 | Outpatient (CLI) | payer OTHER ==
[~2017-02-19] MED LIST: AUGMENTIN PO; CUBICIN IV; FLORASTORKIDS250 MG PO; GUAIFENESIN600 M1 PO; LOC PO; TRAZODONE PO
== END | disposition home or self-care (01) ==
LOC: CSSDAY 06:20
DX: R78.81 Bacteremia (principal); B95.62 Methicillin resistant Staphylococcus aureus infection as the cause of diseases classified elsewhere
CPT/HCPCS: 96365; J0878

== ENCOUNTER → 2017-02-20 | Outpatient (CLI) | payer OTHER | END | disposition home or self-care (01) | LOC: CSSDAY 07:00 | DX: R78.81 Bacteremia (principal); B95.62 Methicillin resistant Staphylococcus aureus infection as the cause of diseases classified elsewhere; Z79.2 Long term (current) use of antibiotics | CPT/HCPCS: 96365; J0878 ==

== ENCOUNTER → 2017-02-21 | Outpatient (CLI) | payer OTHER | END | disposition home or self-care (01) | LOC: CSSDAY 07:00 | DX: R78.81 Bacteremia (principal); B95.62 Methicillin resistant Staphylococcus aureus infection as the cause of diseases classified elsewhere; Z79.2 Long term (current) use of antibiotics | CPT/HCPCS: 96365; J0878 ==

== ENCOUNTER → 2017-02-22 | Outpatient (CLI) | payer OTHER ==
[2017-02-22 08:06] LABS: HEMATOCRIT 34.7 % (38.0-50.0); HEMOGLOBIN 11.7 gm/dL (13.0-16.0); MEAN CELL VOLUME 87.2 FL (83-96); MEAN CORPUSCULAR HEMOGLOBIN 29.4 PG (28-34); MEAN CORPUSCULAR HGB CONC 33.7 g/dL (30-36); RED BLOOD COUNT 3.98 X10e (3.90-5.60); RED CELL DISTRIBUTION WIDTH 14.7 % (11.0-15.5); WHITE BLOOD COUNT 10.2 X10e3 (4.0-10.5)
[2017-02-22 08:34] LABS: BUN/CREATININE RATIO 14.44; CALCIUM SERUM 9.2 mg/dL (8.4-10.2); CREATININE SERUM 0.9 mg/dL (0.6-1.4); POTASSIUM 4.3 mmol/L (3.5-5.1)
== END | disposition home or self-care (01) ==
LOC: CSSDAY 07:00
PROVIDERS: Internal Medicine Infectious Disease
DX: A49.02 Methicillin resistant Staphylococcus aureus infection, unspecified site (principal); Z79.2 Long term (current) use of antibiotics
CPT/HCPCS: 80048; 82550; 85027; 96365; J0878

== ENCOUNTER → 2017-02-23 | Outpatient (CLI) | payer OTHER | END | disposition home or self-care (01) | LOC: CSSDAY 06:13 | DX: A49.02 Methicillin resistant Staphylococcus aureus infection, unspecified site (principal); Z79.2 Long term (current) use of antibiotics | CPT/HCPCS: 96365; J0878 ==

== ENCOUNTER → 2017-02-24 | Outpatient (CLI) | payer OTHER | END | disposition home or self-care (01) | LOC: CSSDAY 05:58 | DX: R78.81 Bacteremia (principal); B95.62 Methicillin resistant Staphylococcus aureus infection as the cause of diseases classified elsewhere; Z79.2 Long term (current) use of antibiotics | CPT/HCPCS: 96365; J0878 ==

== ENCOUNTER → 2017-02-25 | Outpatient (CLI) | payer OTHER | END | disposition home or self-care (01) | LOC: CSSDAY 05:51 | DX: A49.02 Methicillin resistant Staphylococcus aureus infection, unspecified site (principal); Z79.2 Long term (current) use of antibiotics | CPT/HCPCS: 96365; J0878 ==

== ENCOUNTER → 2017-02-26 | Outpatient (CLI) | payer OTHER | END | disposition home or self-care (01) | LOC: CSSDAY 06:01 | DX: R78.81 Bacteremia (principal); B95.62 Methicillin resistant Staphylococcus aureus infection as the cause of diseases classified elsewhere; Z79.2 Long term (current) use of antibiotics | CPT/HCPCS: 96365; J0878 ==

== ENCOUNTER → 2017-02-27 | Outpatient (CLI) | payer OTHER | END | disposition home or self-care (01) | LOC: CSSDAY 06:57 | DX: A49.02 Methicillin resistant Staphylococcus aureus infection, unspecified site (principal); Z79.2 Long term (current) use of antibiotics | CPT/HCPCS: 96365; J0878 ==

== ENCOUNTER → 2017-02-28 | Outpatient (CLI) | payer OTHER | END | disposition home or self-care (01) | LOC: CSSDAY 06:08 | DX: A49.02 Methicillin resistant Staphylococcus aureus infection, unspecified site (principal); Z79.2 Long term (current) use of antibiotics | CPT/HCPCS: 96365; J0878 ==

== ENCOUNTER → 2017-03-01 | Outpatient (CLI) | payer OTHER ==
[2017-03-01 07:29] LABS: HEMATOCRIT 34.8 % (38.0-50.0); HEMOGLOBIN 11.6 gm/dL (13.0-16.0); MEAN CELL VOLUME 86.7 FL (83-96); MEAN CORPUSCULAR HGB CONC 33.5 g/dL (30-36); MEAN PLATELET VOLUME 6.6 FL (6.5-11.5); RED BLOOD COUNT 4.01 X10e (3.90-5.60); RED CELL DISTRIBUTION WIDTH 15.2 % (11.0-15.5); WHITE BLOOD COUNT 7.9 X10e3 (4.0-10.5)
[2017-03-01 08:17] LABS: GLOM FILT RATE Estimated 95.1 mL/min (>60); POTASSIUM 3.9 mmol/L (3.5-5.1)
== END | disposition home or self-care (01) ==
LOC: CSSDAY 06:30
PROVIDERS: Internal Medicine Infectious Disease
DX: R78.81 Bacteremia (principal); B95.62 Methicillin resistant Staphylococcus aureus infection as the cause of diseases classified elsewhere; Z79.2 Long term (current) use of antibiotics
CPT/HCPCS: 80048; 82550; 85027; 96365; J0878